=== PATIENT | female | born 1985 | race Two or more races ===

== ENCOUNTER 2024-05-11 18:21 | Emergency (ER) | payer MEDICAID, OTHER ==
[~2024-05-11] VITALS: Ht 165.1 cm; Wt 100.0 kg
[2024-05-11 18:21] VITALS: BP 172/105; RESP 18; O2SAT 97
[2024-05-11 18:33] VITALS: PULSE 63
--- NOTE | 2024-05-11 19:24 | ECG ---
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
--- NOTE | 2024-05-18 09:10 | ECG ---
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
== END 2024-05-11 23:29 | disposition left against medical advice (07) ==
LOC: EDBD 18:21 → ER 18:21
DX: F41.9 Anxiety disorder, unspecified (principal); R11.0 Nausea; R00.0 Tachycardia, unspecified; Z53.21 Procedure and treatment not carried out due to patient leaving prior to being seen by health care provider
CPT/HCPCS: 93005